=== PATIENT | male | born 1995 ===

== ENCOUNTER 2022-05-29 16:31 | Emergency (ER) | payer BC ==
[~2022-05-29] VITALS: Ht 188 cm; Wt 64.9 kg
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
[2022-05-29] MEDS ORDERED: ACETAMINOPHEN ES 500 MG TABLET ONE (17:22)
[2022-05-29] MEDS ORDERED: CYCLOBENZAPRINE HCL 10 MG TABLET ONE (17:23)
[2022-05-29] MEDS: ACETAMINOPHEN ES 500 MG TABLET PO ONE (17:26)
[2022-05-29] MEDS: CYCLOBENZAPRINE HCL 10 MG TABLET PO ONE (17:26)
[2022-05-29] MEDS ORDERED: CYCL10TA9 PO (18:41)
--- NOTE | 2022-05-29 18:51 | NUR ---
Gave pt RX and d/c instructions, pt verbalized understanding.
== END 2022-05-29 18:56 | disposition home or self-care (01) ==
LOC: ER 16:33
DX: S13.4XXA Sprain of ligaments of cervical spine, initial encounter (principal); R07.81 Pleurodynia; M25.561 Pain in right knee; R07.89 Other chest pain; F17.210 Nicotine dependence, cigarettes, uncomplicated; Z79.899 Other long term (current) drug therapy; V43.52XA Car driver injured in collision with other type car in traffic accident, initial encounter; Y93.89 Activity, other specified; Y92.410 Unspecified street and highway as the place of occurrence of the external cause; Y99.8 Other external cause status
CPT/HCPCS: 71045; A4663; A9150